=== PATIENT | male | born 1985 | race Caucasian/White ===

== ENCOUNTER 2019-12-16 20:45 | Observation (INO) | payer BC ==
[~2019-12-16] VITALS: Ht 175.3 cm; Wt 113.9 kg
[~2019-12-16 20:45] MED LIST: AMOXICILLIN 50500 MG PO; AMOXICILLIN 8751 TAB PO; NORCO 325 MG-51 TAB PO; NORCO 325 MG-7.1 TAB PO; PEN-VEE K500 MG PO
[2019-12-17 00:53] VITALS: BP 136/87; PULSE 74; TEMP 98.8
--- NOTE | 2019-12-17 01:55 | NUR ---
Pt arrived to the floor via stretcher.Pt was assisted to the bed by staff. Pt stated that his pain is not as bad as it was. Pt was able to tell me about his health history. Pt lung sounds were clear and heart sounds were normal S1 and S2 sounds. Pt does have a abrasion on his left knee. He came up with an immobilizer on his left knee. Pt has ice to his left knee and it is elevated on a pillow. Pt has fluid infuising to an IV to his Right forearm. Pt was assited with taking off his jeans. Pt agreed that he was ok with staff cutting his jeans off. Pt belongings are in his closet in his room. Pt did state that he has his wallet and some agustin valued at $140.00 in his wallet. Pt declined safe at this time. Pt has his call light within reach and his bed is in lowest position and his urinal is within reach.
[2019-12-17 04:05] VITALS: BP 147/81; PULSE 72; TEMP 98
--- NOTE | 2019-12-17 07:19 | NUR ---
Pt currently lying in bed. Pt stated that his pain is still not better. Pt was given IV morphine at 0602. Pt has his call light within reach and he has ice on his leg at this time. Pt has not complained of much pain during the night. Pt was asked this morning if he wanted to try something for pain. Pt agreed. I encourged pt to let staff know if he has pain and we could try to get him something for pain as long as he is able.
[2019-12-17 07:53] VITALS: BP 161/86; PULSE 65; TEMP 98.1
--- NOTE | 2019-12-17 08:00 | NUR ---
Patient resting in bed at this time. Patient is alert and oriented, answers questions appropriately. Immobilizer and ice to left knee. An abrasion to the left knee is visible, appears to be clean and CHUY, no drainage noted. Left leg is swollen but pulses are present and cap refill intact in the left foot. Patient is voiding in the urinal with no difficulty, urine is clear and yellow. Discussed CT ordered by ortho, patient denies questions or concerns. Call light within reach.
[2019-12-17 12:08] VITALS: BP 163/90; PULSE 78; TEMP 98.7
[2019-12-17] MEDS ORDERED: PERCOCET 325 MG1 TA2 PO (16:11)
[2019-12-17] MEDS ORDERED: MOBIC15 MG PO (16:12)
[2019-12-17] MEDS ORDERED: COLACE 100100 MG/CAP PO (16:13)
[2019-12-17 16:38] VITALS: BP 145/91; PULSE 95; TEMP 98.2
--- NOTE | 2019-12-17 17:20 | NUR ---
Discharge teaching completed. Discussed follow up appointment, discharge medication, use of crutches and knee immobilizer, and shower restrictions. Patient questions asked and answered. IV removed, catheter intact, hemostasis achieved. Patient transferred to wheelchair and escorted to ER entrance, where he entered a private vehicle.
--- NOTE | 2019-12-19 09:43 | NUR ---
Environmental Specialist received a consult for the patient due to needing crutches. SW contacted the patient. He states he did receive a pair. He states they are a little too tall but is not super concerned about exchanging them. There are no additional needs at this time.
== END 2019-12-17 17:20 | disposition home or self-care (01) ==
LOC: COL.ER 20:45 → SURG 22:12
PROVIDERS: ADMIT Orthopaedic Surgery Sports Medicine
DX: M25.562 Pain in left knee (principal); F17.210 Nicotine dependence, cigarettes, uncomplicated
CPT/HCPCS: G0378; J2270; J2704; J3010; J7030; L1846

== ENCOUNTER → 2019-12-21 | Outpatient (CLI) | payer BC ==
[~2019-12-21] MED LIST changes: +COLACE 100100 MG/CAP PO; +MOBIC15 MG PO; +PERCOCET 325 MG1 TA2 PO
== END ==
LOC: COL.VAS 12:00
DX: Z13.6 Encounter for screening for cardiovascular disorders (principal); S82.142A Displaced bicondylar fracture of left tibia, initial encounter for closed fracture

== ENCOUNTER 2020-10-25 06:43 | Emergency (ER) | payer BC ==
[~2020-10-25] VITALS: Ht 175.3 cm; Wt 111.4 kg
[2020-10-25 07:02] VITALS: BP 145/83; TEMP 98
[2020-10-25 08:00] VITALS: PULSE 77
== END 2020-10-25 08:10 | disposition home or self-care (01) ==
LOC: COL.ER 06:43
DX: M25.562 Pain in left knee (principal); F17.290 Nicotine dependence, other tobacco product, uncomplicated; Z98.890 Other specified postprocedural states; X50.1XXA Overexertion from prolonged static or awkward postures, initial encounter

== ENCOUNTER 2023-10-04 22:00 | Inpatient (IN) | payer OTHER ==
[~2023-10-04] VITALS: Ht 175.3 cm; Wt 101.0 kg
[2023-10-06] VITALS (10 sets, daily range): BP systolic 131–162; BP diastolic 73–89; PULSE 52–88; TEMP 98.2–98.9
--- NOTE | 2023-10-06 03:22 | NUR ---
An Electronic Health Record (EHR) downtime even occurred during this patient's care. For legal medical record information generated during the downtime period, please reference the patient's legal medical record. Paper or scanned documentation has been incorporated into the legal medical record which is maintained in accordance with Health Information Management (HIM) and record retention policies.
[2023-10-06] MEDS ORDERED: Acetaminophen 325 MG TAB PO PRN (04:30)
[2023-10-06] MEDS ORDERED: Morphine 4 MG/ML VIAL IV PRN (04:30)
[2023-10-06] MEDS ORDERED: Albuterol/Ipratropium 3 MG-0.5 MG/3 ML Neb Soln IH PRN (04:30)
[2023-10-06] MEDS ORDERED: Ondansetron 4 MG/2 ML VIAL IV PRN (04:30)
--- NOTE | 2023-10-06 06:00 | NUR ---
LATE ENTRY 10/05/23 1903: PATIENT SITTING UP RESTING IN BED WITH TV ON WITH NO FAMILY PRESENT WITH NO ACUTE DISTRESS NOTED. PATIENT ON ROOM AIR. LR INFUSING INTO RIGHT AC WIHT NO COMPLICATIONS NOTED. BEDSIDE SHIFT REPORT COMPLETED MAGDALENA ALEMAN RN. PATIENT DENIES ANY NEEDS AT THIS TIME. BED IN LOW POSITION WITH WHEELS LOCKED WITH RAILS UP X2 AND CALL LIGHT WITHIN REACH. 1999: PATIENT RESTING IN BED WATCHING TV WITH NO FAMILY PRESENT WITH NO ACUTE DISTRESS NOTED. PATIENT ON ROOM AIR. LR INFUSING INTO RIGHT AC WITH NO COMPLICATIONS NOTED. ASSESSMENT COMPLETED. PATIENT REQUESTED CUP OF ICE AND WAS GIVEN. PATIENT DENIES ANY OTHER NEEDS. BED IN LOW POSITION WITH WHEELS LOCEKD WITH RAILS UP X2 AND CALL LIGHT WITHIN REACH. 2199: PATIENT RESTING IN BED WITH TV OFF WITH NO FAMILY PRESENT WITH NO ACUTE DISTRESS NOTED. PATIENT ON ROOM AIR. PATIENT C/O PAIN. IV MORPHINE GIVEN MD ORDER. PATIENT STATES PAIN LEVEL IS 5/6 ON SCALE OF 0 TO 10. PATIENT DENIES ANY OTHER NEEDS. LR INFUSING INTO RIGHT AC WITH NO COMPLICATIONS NOTED. BED IN LOW POSITION WITH WHEELS LOCKED WITH RAILS UP X2 AND CALL LIGHT WITHIN REACH.
[2023-10-06] MEDS ORDERED: LR 1,000 ML IV SCH ×2 (06:30→10:00)
--- NOTE | 2023-10-06 07:00 | NUR ---
Report received from Fernanda SIMON, pt resting in bed with no pain at this time. Pt remains NPO and steady gait around room. Will continue to monitor.
--- NOTE | 2023-10-06 08:48 | NUR ---
Pt resting in bed with pain 3/10 in lower abdomen. Pt states no N/V with ice chips, small loose bm this AM, and steady gait around room. Pt a/o x4, with bowel sounds present. Pt encouraged to ambulate around floor. Will continue to monitor.
[2023-10-06] MEDS ORDERED: Pantoprazole 40 MG in NS 10 ML IV SCH (09:00)
[2023-10-06] MEDS ORDERED: Nicotine 14 MG DAILY PATCH TD SCH (09:00)
--- NOTE | 2023-10-06 18:47 | NUR ---
PATIENT SITTING UP BEDSIDE RECLINER WITH TV ON WITH NO FAMILY PRESENT WITH NO ACUTE DISTRESS NOTED. PATIENT EATING DINNER. PATIENT ON ROOM AIR. LR INFUSING INTO RIGHT AC WITH NO COMPLICATIONS NOTED. BEDSIDE SHIFT REPORT COMPLETED WITH BERNADETTE Key RN. PATIENT DENIES ANY NEEDS AT THIS TIME. RECLINER LOCKED WITH CALL LIGHT WITHIN REACH.
--- NOTE | 2023-10-06 20:15 | NUR ---
PATIENT RESTING SITTING UP IN BED WITH TV ON WITH NO FAMILY PRESENT WITH NO ACUTE DISTRESS NOTED. PATIENT ON ROOM AIR. LR INFUSING INTO RIGHT AC WITH NO COMPLICATIONS NOTED. PATIENT C/O IV LEAKING. UPON CLOSER INSPECTION DRESSING WET. INT REMOVED WITH CATHETER INTACT AND PRESSURE DRESSING APPLIED. NEW IV #20 TO RIGHT HAND OBTAINED X1 STICK. PATIENT TOLERATED WELL. LR CONNECTED AND INFUSING AT 100 ML/HR WITH NO COMPLICATIONS NOTED. ASSESSMENT COMPLETED. PATIENT STATES PAIN LEVEL IS 2 ON SCALE OF 0 TO 10. PATIENT DENIES ANY NEEDS AT THIS TIME. BED IN LOW POSITION WITH WHEELS LOCKED WITH RAILS UP X2 AND CALL LIGHT WITHIN REACH.
--- NOTE | 2023-10-06 23:36 | NUR ---
PATIENT RESTING IN BED WITH TV OFF WITH NO FAMILY PRESENT WITH NO ACUTE DISTRESS NOTED. PATIENT ON ROOM AIR. LR STOPPED. IV FLUSHED. ZOSYN STARTED AND INFUSING WITH NO COMPLICATIONS NOTED. PATIETN TOELRATING WELL. PATIENT DENIES ANY NEEDS. BED IN LOW POSITION WITH WHEELS LOCKED WITH RAILS UP X2 AND CALL LIGHT WITHIN REACH.
[2023-10-07] VITALS (13 sets, daily range): BP systolic 141–155; BP diastolic 82–98; PULSE 72–80; TEMP 98.1–98.4
--- NOTE | 2023-10-07 09:21 | NUR ---
PT RESTING IN BED WITH PAIN 2/10 IN ABODMEN AT THIS TIME. PT TOELRATING CLEAR DEIT WELL WITH NO N/V. PT REPORTS PASSING GAS, AND BOWEL SOUNDS PRESENT. STEADY GAIT AROUND ROOM, WILL CONTINUE TO MONITOR.
[2023-10-07] MEDS ORDERED: Amoxicillin/Clavulanate K+ 875/125 MG TAB PO SCH (17:20)
--- NOTE | 2023-10-07 18:47 | NUR ---
PATIENT SITTING UP BEDSIDE RECLINER EATING DINNER WITH TV ON WITH NO FAMILY PRESENT WITH NO ACUTE DISTRESS NOTED. PATIENT ON ROOM AIR. INT TO RIGHT HAND INTACT WITH NO COMPLICATIONS NOTED. BEDSIDE SHIFT REPORT COMPLETED WITH BERNADETTE Alvarado RN. PATIENT DENIES ANY NEEDS AT THIS TIME. RECLINER LOCKED AND CALL LIGHT WITHIN REACH.
--- NOTE | 2023-10-07 21:05 | NUR ---
PATIENT RESTING IN BED WITH TV ON WITH NO FAMILY PRESENT FACE TIMING WITH WITH NO ACUTE DISTRESS NOTED. PATIENT ON ROOM AIR. INT TO RIGHT HAND INTACT WITH NO COMPLICATIONS NOTED. ASSESSMENT AND IV FLUSHED. PATIENT TOELRATED WELL. PATIENT DENIES ANY NEEDS AT THIS TIME. BED IN LOW POSITION WITH WHEELS LOCKED WITH RAILS UP X2 AND CALL LIGHT WITHIN REACH.
[2023-10-08] VITALS (7 sets, daily range): BP systolic 127–162; BP diastolic 81–92; PULSE 73–75; TEMP 98.1–98.5
--- NOTE | 2023-10-08 08:15 | NUR ---
SHIFT ASSESSMENT COMPLETE. VSS. PATIENT AWAKE AND EATING BREAKFAST. ALL MORNING MEDS GIVEN PER ORDERS, PATIENT HAS NO REQUEST OR COMPLAINTS AT THIS TIME. [facility]
[2023-10-08] MEDS ORDERED: AMOXICILLIN 8751 TAB PO (10:12)
== END 2023-10-08 11:58 | disposition home or self-care (01) | DRG 392 ==
LOC: MEDICAL 22:00
PROVIDERS: ADMIT Internal Medicine
DX: K57.20 Diverticulitis of large intestine with perforation and abscess without bleeding (principal); F17.200 Nicotine dependence, unspecified, uncomplicated; R55 Syncope and collapse; E83.42 Hypomagnesemia
CPT/HCPCS: C9113; J2543; J7120